=== PATIENT | female | born 1970 | race Caucasian/White ===

== ENCOUNTER 2018-10-14 02:20 | Emergency (ER) | payer OTHER ==
[~2018-10-14] VITALS: Ht 144.8 cm; Wt 113.2 kg
[~2018-10-14 02:20] MED LIST: ACET325T14 PO; DIPH25CA61 PO; FLUO40CA2 PO; MONT10TA9 PO
[2018-10-14] MEDS ORDERED: FLUT15OI2 EXT (02:32)
[2018-10-14] MEDS ORDERED: CEPHALEXIN 500 MG CAPSULE PO ONE (03:00)
[2018-10-14] MEDS ORDERED: HYDROcodone/APAP 5/325 TABLET PO ONE (03:00)
[2018-10-14] MEDS ORDERED: HYDROcodone/APAP 5/325 TABLET ONE (03:22)
[2018-10-14] MEDS ORDERED: CEPHALEXIN 500 MG CAPSULE ONE (03:22)
[2018-10-14 03:28] LABS: ALANINE AMINOTRANSFERASE 17 U/L (12-78); ALBUMIN 3.1 g/dL (3.4-5.0); ANION GAP 7 mmol/L (5-15); CALCIUM 8.6 mg/dL (8.5-10.1); CHLORIDE 111 mmol/L (98-107); CREATININE 0.71 mg/dL (0.55-1.02)
[2018-10-14 03:29] LABS: BASOPHILS # (AUTO) 0.04 x10^3/uL (0-0.1); BASOPHILS % (AUTO) 1 % (0-1); EOSINOPHILS % (AUTO) 5 % (1-7); LYMPHOCYTES # (AUTO) 2.45 x10^3/uL (1-3.4); LYMPHOCYTES % (AUTO) 41 % (22-44); MD SCAN; MEAN CORPUSCULAR HGB CONC 33.1 g/dL (32.4-35.8); MEAN CORPUSCULAR VOLUME 87.5 fL (80-100); MONOCYTES # (AUTO) 0.36 x10^3/uL (0.2-0.8); MONOCYTES % (AUTO) 6 % (2-9); NEUTROPHILS # (AUTO) 2.87 x10^3/uL (1.8-6.8); NEUTROPHILS % (AUTO) 48 % (42-75); RED BLOOD COUNT 4.76 x10^6/uL (3.82-5.3); RED CELL DISTRIBUTION WIDTH 13.1 % (9.6-15.2)
[2018-10-14 03:30] LABS: ALKALINE PHOSPHATASE 56 U/L (45-117); BILIRUBIN,TOTAL 0.4 mg/dL (0.2-1.0); PLATELET COUNT 44 x10^3/uL (130-400); TOTAL PROTEIN 6.1 g/dL (6.4-8.2)
--- NOTE | 2018-10-14 03:38 | NUR ---
PATIENT GIVEN CRACKERS WITH MEDICATION TO PREVENT NAUSEA. PATIENT TOLERATED MEDICATIONS WELL.
[2018-10-14] MEDS ORDERED: hydrOXyzine 50MG TABLET ONE (04:16)
[2018-10-14 05:25] VITALS: BP 139/84
== END 2018-10-14 05:29 | disposition home or self-care (01) ==
LOC: ED 04:08 → UNDOADMIN 04:10 → EDIP 04:10 → ED 05:29
DX: L03.113 Cellulitis of right upper limb (principal); L03.114 Cellulitis of left upper limb; D69.3 Immune thrombocytopenic purpura; L30.9 Dermatitis, unspecified
CPT/HCPCS: 36415; 80053; 85025; 99284; Q0177